=== PATIENT | male | born 1995 | race African-American/Black ===

== ENCOUNTER 2018-01-07 08:15 | Emergency (ER) | payer OTHER ==
[2018-01-07] MEDS: MAGIC MOUTHWASH SUSPENSION BTL SS (09:44)
== END 2018-01-07 09:49 | disposition home or self-care (01) ==
LOC: M ED 08:15
DX: J02.8 Acute pharyngitis due to other specified organisms (principal)
CPT/HCPCS: 87880

== ENCOUNTER 2018-08-26 23:38 | Emergency (ER) | payer OTHER ==
[2018-08-27] MEDS: cefTRIAXone SOD 250 MG VIAL (J0696) IM (00:45)
[2018-08-27] MEDS: AZITHROMYCIN 250 MG TAB PO (00:45)
[2018-08-27] MEDS ORDERED: LIDOCAINE 1% MDV 20ML VIAL As Ordered (01:08)
[2018-08-27 01:56] LABS: CHLAMYDIA DNA AMPLIFICATION POSITIVE (NEGATIVE); GC DNA AMPLIFICATION NEGATIVE (NEGATIVE)
== END 2018-08-27 01:17 | disposition home or self-care (01) ==
LOC: M ED 23:38
DX: Z20.2 Contact with and (suspected) exposure to infections with a predominantly sexual mode of transmission (principal)
CPT/HCPCS: J0696

== ENCOUNTER 2019-07-11 06:29 | Emergency (ER) | payer OTHER ==
[~2019-07-11] VITALS: Ht 170.2 cm; Wt 79.5 kg
[~2019-07-11 06:29] MED LIST: MAGICMW MT
[2019-07-11 07:12] LABS: HEMATOCRIT 49.2 % (42.0-52.0); HEMOGLOBIN 15.8 g/dl (13.5-17.5); MEAN CORPUSCULAR HEMOGLOBIN 27.4 pg (27.0-33.0); MEAN CORPUSCULAR HGB CONC 32.1 g/dl (32.0-36.5); MEAN CORPUSCULAR VOLUME 85.3 fl (80.0-96.0); PLATELET COUNT, AUTOMATED 210 10^3/uL (150-450); RED BLOOD COUNT 5.77 10^6/uL (4.30-6.10); WHITE BLOOD COUNT 4.9 10^3/uL (4.0-10.0)
[2019-07-11 07:40] LABS: INFLUENZA A AMPLIFICATION NEGATIVE (NEGATIVE); INFLUENZA B AMPLIFICATION NEGATIVE (NEGATIVE)
[2019-07-11 07:42] LABS: ALBUMIN 3.9 GM/DL (3.2-5.2); ALT/SGPT 23 U/L (12-78); BILIRUBIN,TOTAL 0.3 MG/DL (0.2-1.0); BLOOD UREA NITROGEN 8 MG/DL (7-18); CALCIUM LEVEL 9.1 MG/DL (8.5-10.1); CARBON DIOXIDE LEVEL 31 MEQ/L (21-32); CHLORIDE LEVEL 104 MEQ/L (98-107); CREATININE FOR GFR 0.98 MG/DL (0.70-1.30); GLOMERULAR FILTRATION RATE > 60.0 (>60); GLUCOSE, FASTING 98 MG/DL (70-100); POTASSIUM SERUM 4.6 MEQ/L (3.5-5.1); SODIUM LEVEL 140 MEQ/L (136-145); TOTAL PROTEIN 7.4 GM/DL (6.4-8.2)
[2019-07-11 07:48] LABS: MONO SCRN NEGATIVE (NEGATIVE)
[2019-07-11] MEDS ORDERED: FLUT15.820 NARES (08:32)
[2019-07-11 08:45] VITALS: BP 139/75
== END 2019-07-11 08:59 | disposition home or self-care (01) ==
LOC: M ED 06:29
DX: J02.8 Acute pharyngitis due to other specified organisms (principal); J30.9 Allergic rhinitis, unspecified; Z20.828 Contact with and (suspected) exposure to other viral communicable diseases